=== PATIENT | female | born 1980 | race Caucasian/White ===

== ENCOUNTER 2017-01-16 16:37 | Emergency (ER) | payer MEDICAID, OTHER ==
[~2017-01-16] VITALS: Ht 165.1 cm; Wt 85.0 kg
[~2017-01-16 16:37] MED LIST: OXYC1SOL5 PO
[2017-01-16 16:40] VITALS: BP 228/124; PULSE 78; RESP 20; TEMP 98; O2SAT 98
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
[2017-01-16] MEDS ORDERED: oxyCODONE/ACETAMINOPHEN 5 MG/325 MG TAB PO ONE (17:30)
[2017-01-16] MEDS ORDERED: cloNIDine HCL 0.1 MG TAB PO ONE (17:30)
[2017-01-16 18:30] VITALS: BP 167/90; PULSE 79; RESP 16; O2SAT 99
[2017-01-16 18:33] VITALS: RESP 16
--- NOTE | 2017-01-16 19:19 | RADRPT ---
EXAM DATE/TIME: 01/16/2017 19:02 [facility] COMPARISON: CT BRAIN W/O CONTRAST, May 04, 2015, 22:02. INDICATIONS : Headache for two days and hypertension. RADIATION DOSE: 49.03 CTDIvol (mGy) MEDICAL HISTORY : Cardiovascular disease. Seizures. SURGICAL HISTORY : section. GLASS SELECTOR shunt ENCOUNTER: Initial ACUITY: 2 days PAIN SCALE: 4/10 LOCATION: cranial TECHNIQUE: Multiple contiguous axial images were obtained of the head. Using automated exposure control and adj ustment of the mA and/or kV according to patient size, radiation dose was kept as low as reasonably a chievable to obtain optimal diagnostic quality images. FINDINGS: CEREBRUM: Ventricles are small. Ventriculoperitoneal shunt catheter again noted, visualized portions intact. N o evidence of midline shift, mass lesion, hemorrhage or acute infarction. No extra-axial fluid colle ctions are seen. POSTERIOR FOSSA: The cerebellum and brainstem are intact. The 4th ventricle is midline. The cerebellopontine angle i s unremarkable. EXTRACRANIAL: The visualized portion of the orbits is intact. SKULL: The calvaria is intact. No evidence of skull fracture. CONCLUSION: Negative and unchanged. Ventriculoperitoneal shunt catheter present. No ventricular dilatation. Dante Tanner MD on January 16, 2017 at 19:16 Board Certified Radiologist. This report was verified electronically.
--- NOTE | 2017-01-16 19:24 | PD ---
Physical Exam Date Seen by Provider: January 16, 2017 Time Seen by Provider: 19:53 Narrative 36-year-old female came to the emergency room with history of headache. She was seen by the previous ER physician. Please refer to his notes for the history and physical. My signout was to follow-up on the CAT scan of her head and if it was within normal limits patient could be discharged home. She was medicated for her headache by the previous physician. Patient does have history of a JUVENILE OFFICER shunt in place and the CAT scan report came back as no hydrocephalus and within normal limits. I went to speak with the patient and let her know about the CAT scan report. She started complaining of her fingers feeling tingling and numb with some weakness. Patient says this has been going on for past 2 weeks. Things have been falling from her hand because of this. Upon asking she pointed to her index middle and ring finger of both hands and occasionally her thumbs. Said her pinky finger felt okay. She has been wearing cockup splints at home thinking that it could be carpal tunnel but that' s not helping she said. Her neurosurgeon is from [place] and she hasn't gone to seen him lately since its to follow-up. She does not have any primary care doctor or neurologist in the local area. She does not have the card to her JUVENILE OFFICER shunt. She said the last time she had an MRI done was few years ago and this institution after which the shunt needed to be reset. Her JUVENILE OFFICER shunt is from 2008 and has not been changed or altered since then. I have ordered a shunt series at this point. Once I have the shunt series back I would have to speak with the neurosurgeon since I was told by MRI that if an MRI is ordered the neurosurgeon needs to see her to turn the shunt off and then after the MRI needs to come back and reset it. Data Data Last Documented VS Vital Signs Date Time Temp Pulse Resp B/P Pulse Ox O2 Delivery O2 Flow Rate FiO2 01/16/17 18:33 16 01/16/17 18:30 79 167/90 99 Room Air 01/16/17 16:[address] Brain W/O Iv Contrast(Rout) (01/16/17 ) Clonidine (Catapres) (01/16/17 17:30) Oxycodone-Acetamin 5-325 Mg (Percocet (01/16/17 17:30) Ct Cerv Spine W/O Contrast (01/16/17 ) Skull, One View (01/16/17 ) MDM Supervised Visit with AMIE: No Narrative Course 9:07 PM I discussed the case with neurosurgeon Dr. Thomas and also Dr. Bowman from neurology. As per Dr. Bowman patient can just have a CT scan of her cervical spine and if it is negative she could be discharged home. She would be happy to follow up with her as an outpatient and maybe even get an EMG study done. I let the patient know about this plan and she was okay with it. Awaiting for the CAT scan to be done and resulted. 9:[address] C-spine was within normal limit. Patient will be discharged home. Physician Communication Physician Communication Dr. Bowman, Dr. Thomas Diagnosis Primary Impression: Headache Qualified Code: R51 - Acute nonintractable headache, unspecified headache type Additional Impressions: Accelerated hypertension S/P JUVENILE OFFICER shunt Paresthesia Weakness of both upper extremities Referrals: Pat Bowman MD 2 days Additional Instruction: Please call the neurologist office who is name and number been provided to you. Please return to the ER if the condition worsens or any other new concerns. Follow-up with the neurosurgeon as well. Med/Other Pt SpecificInfo: No Change to Meds Scripts No Active Prescriptions or Reported Meds Disposition: 01 DISCHARGE HOME Condition: Stable Miguel Chaudhary MD January 16, 2017 19:24
--- NOTE | 2017-01-16 20:54 | RADRPT ---
EXAM DATE/TIME: 01/16/2017 20:18 [facility] COMPARISON: SHUNTOGRAM, May 05, 2015, 8:36. SHUNT SERIES, May 04, 2015, 21:14. INDICATIONS : Evaluate shunt setting. Headaches. MEDICAL HISTORY : Cardiovascular disease. Seizures. SURGICAL HISTORY : section. CASHIER CHECKER shunt ENCOUNTER: Initial ACUITY: 3 days PAIN SCORE: 3/10 LOCATION: Skull. FINDINGS: Valve configuration appears to correspond to a Medtronic programmable valve at P./L. setting of 0.5 CONCLUSION: Med[employer] programmable valve as above. Dante Tanner MD on January 16, 2017 at 20:51 Board Certified Radiologist. This report was verified electronically.
--- NOTE | 2017-01-16 21:30 | RADRPT ---
EXAM DATE/TIME: 01/16/2017 20:53 [facility] COMPARISON: No previous studies available for comparison. INDICATIONS : Bilateral hand tingling. RADIATION DOSE: 17.34 CTDIvol (mGy) MEDICAL HISTORY : None SURGICAL HISTORY : None. ENCOUNTER: Initial ACUITY: 1 day PAIN SCALE: 0/10 LOCATION: neck TECHNIQUE: Volumetric scanning of the cervical spine was performed. Multiplanar reconstructions in the sagittal, coronal and oblique axial planes were performed. Using automated exposure control and adjustment o f the mA and/or kV according to patient size, radiation dose was kept as low as reasonably achievable to obtain optimal diagnostic quality images. FINDINGS: VERTEBRAE: Normal vertebral body height. ALIGNMENT: No evidence of subluxation. C2-C3: The bony spinal canal is normal in size. No evidence of disc bulge or herniation. The neural forami na are bilaterally patent. C3-C4: The bony spinal canal is normal in size. No evidence of disc bulge or herniation. The neural forami na are bilaterally patent. C4-C5: The bony spinal canal is normal in size. No evidence of disc bulge or herniation. The neural forami na are bilaterally patent. C5-C6: The bony spinal canal is normal in size. No evidence of disc bulge or herniation. The neural forami na are bilaterally patent. C6-C7: The bony spinal canal is normal in size. No evidence of disc bulge or herniation. The neural forami na are bilaterally patent. C7-T1: The bony spinal canal is normal in size. No evidence of disc bulge or herniation. The neural forami na are bilaterally patent. Patient's ventriculoperitoneal shunt catheter courses within the soft tissues of the left side of the neck; what can be seen and it is grossly unremarkable. CONCLUSION: Negative CT of the cervical spine. Dante Tanner MD on January 16, 2017 at 21:27 Board Certified Radiologist. This report was verified electronically.
== END 2017-01-16 21:57 | disposition home or self-care (01) ==
LOC: NEPC 16:37
DX: R51 Headache (principal); I10 Essential (primary) hypertension; R20.2 Paresthesia of skin; R53.1 Weakness; Z98.890 Other specified postprocedural states; Z72.0 Tobacco use; Z86.79 Personal history of other diseases of the circulatory system; Z87.39 Personal history of other diseases of the musculoskeletal system and connective tissue; Z86.69 Personal history of other diseases of the nervous system and sense organs
CPT/HCPCS: 70250; 70450; 72125; 99285